=== PATIENT | female | born 1960 | race Caucasian/White ===

== ENCOUNTER 2016-10-31 14:45 | Emergency (ER) | payer OTHER ==
--- NOTE | ~2016-10-31 | CT71 ---
[facility] A Service [facility] RADIOLOGY TEXT RESULTS PATIENT: SHAWN FIELDS LOCATION: SED : 58 UNIT #: [id number] AGE: [address]: Dre Lawton MD SEX: F ORDER DR: [id number] [place] [id number] E MR#: [id number] Acc #: [id number] NAME: SHAWN FIELDS : 1960 SEX: F STUDY DATE/TIME: 10/31/2016 15:18 UNIT: SED ROOM: STUDY DESCRIPTION: CT Head Wo Contrast Attending Physician: Dre Lawton M.D. Ordering Physician: Dre Lawton M.D. MEDICAL IMAGING REPORT This report is preliminary unless electronic signature is present. EXAM CT head without IV contrast COMPARISON None INDICATIONS 56-year-old female with headache after falling and hitting the back of her head on the concrete today. Loss of consciousness for [address] imaging of the head was performed without IV contrast. This CT exam was performed with one or more of the following radiation dose reduction techniques: Automatic exposure control, adjustment of mA and/or kV according to patient size, and iterative reconstruction. Mastoid air cells, middle ears and visualized paranasal sinuses are well aerated. No significant subcutaneous hematoma. No acute fractures or suspicious osseous lesions. Normal cerebral and cerebellar volume. No abnormal extraaxial fluid collection or mass effect. No acute intracranial hemorrhage. No evidence of acute ischemia. IMPRESSION No acute intracranial abnormality. Dictated by... Delano Irwin M.D. THIS IS AN ELECTRONICALLY VERIFIED REPORT Delano Irwin M.D. at 11/04/2016 8:40 AM [facility] A Service [facility] RADIOLOGY TEXT RESULTS PATIENT: SHAWN FIELDS LOCATION: SED : 58 UNIT #: [id number] AGE: [address]: Dre Lawton MD SEX: F ORDER DR: TD: 10/31/2016 18:42 JOB #: [id number] MEDICAL IMAGING REPORT Page 1 of 1
--- NOTE | ~2016-10-31 | CT52 ---
[facility]. [facility] A Service of [facility] RADIOLOGY TEXT RESULTS PATIENT: SHAWN FIELDS LOCATION: SED : 58 UNIT #: [id number] AGE: [address]: Dre Lawton MD SEX: F ORDER DR: [id number] [address] [address] [id number] E MR#: [id number] Acc #: [id number] NAME: SHAWN FIELDS : 1960 SEX: F STUDY DATE/TIME: 10/31/2016 15:37 UNIT: SED ROOM: STUDY DESCRIPTION: CT Cervical Spine Wo Cont Attending Physician: Dre Lawton M.D. Ordering Physician: Dre Lawton M.D. MEDICAL IMAGING REPORT This report is preliminary unless electronic signature is present. EXAM CT cervical spine without IV contrast COMPARISON None INDICATIONS 56-year-old female with neck pain after falling and hitting her head on the concrete today. FINDINGS Axial CT imaging of the cervical spine was performed without IV contrast. Coronal sagittal reformats were constructed. This CT exam was performed with one or more of the following radiation dose reduction techniques: Automatic exposure control, adjustment of mA and/or kV according to patient size, and iterative reconstruction. Lack of IV contrast limits evaluation of adenopathy, vasculature and viscera. Bilateral minimal focal cervical carotid artery calcifications. Airway is widely patent. There is a trace right mastoid effusion. This is likely clinically insignificant. No evidence of associated acute fracture. Cervical spine is anatomically aligned aside from mild reversal of the normal curvature, perhaps positional or due to muscle spasm. No acute fracture. Mild uncinate hypertrophy of C5-C6 and C6-C7. There is mild associated bony neural foraminal narrowing on the left at C6-C7 IMPRESSION 1. No acute fracture or subluxation of the cervical spine. There is reversal of the normal curvature of the cervical spine, which may be positional or due to muscle spasm. 2. Mild uncinate hypertrophy and degenerative disc height loss at C5-C6 and C6-C7 with mild neural foraminal narrowing on the left at C6-C7 due to this uncinate hypertrophy. [facility] A Service of [facility] RADIOLOGY TEXT RESULTS PATIENT: SHAWN FIELDS LOCATION: SED : 58 UNIT #: [id number] AGE: [address]: Dre Lawton MD SEX: F ORDER DR: 3. Minimal cervical carotid artery calcifications. Dictated by... Delano Irwin M.D. THIS IS AN ELECTRONICALLY VERIFIED REPORT Delano Irwin M.D. at 11/04/2016 8:40 AM [facility]/dayron TD: 10/31/2016 18:49 JOB #: [id number] MEDICAL IMAGING REPORT Page 1 of 1
--- NOTE | ~2016-10-31 | CR71 ---
[facility]. [facility] A Service of [facility] RADIOLOGY TEXT RESULTS PATIENT: SHAWN FIELDS LOCATION: SED : 58 UNIT #: [id number] AGE: [address]: Dre Lawton MD SEX: F ORDER DR: [id number] [address] [address] [id number] E MR#: [id number] Acc #: [id number] NAME: SHAWN FIELDS : 1960 SEX: F STUDY DATE/TIME: 10/31/2016 15:45 UNIT: SED ROOM: STUDY DESCRIPTION: CR Chest Single View Attending Physician: Dre Lawton M.D. Ordering Physician: Dre Lawton M.D. MEDICAL IMAGING REPORT This report is preliminary unless electronic signature is present. EXAM Portable AP view of the chest COMPARISON None INDICATIONS 56-year-old female with upper back pain after falling and landing on her back today. FINDINGS No evidence of pneumothorax or definite pleural effusion. There is hazy attenuation over the left lung base favored to reflect prominent breast and cardiac shadows. Somewhat of a rounded density in the midline lower chest which could reflect a hiatal hernia. Adenopathy is thought less likely. Minimal right basilar opacity favoring atelectasis. IMPRESSION 1. Low lung volumes with right basilar opacities favoring atelectasis. 2. Hazy attenuation over the left lower chest is likely artifactual and related to overlapping breast and cardiac shadows but left basilar atelectasis, pneumonia or pleural effusion cannot entirely be excluded. 3. There is also suggestion of rounded density in the midline lower chest, possibly reflecting a hiatal hernia. Please note that adenopathy cannot be excluded in the midline lower chest. Consider dedicated PA and lateral views for further characterization with adequate inspiratory effort. 4. Not mentioned specifically in the body of the report, there are minimal sclerotic opacities in the proximal humerus at the level of the neck and head, favoring benign enchondroma. [facility]. [facility] A Service [facility] RADIOLOGY TEXT RESULTS PATIENT: SHAWN FIELDS LOCATION: SED : 58 UNIT #: [id number] AGE: [address]: Dre Lawton MD SEX: F ORDER DR: Dictated by... Delano Irwin M.D. THIS IS AN ELECTRONICALLY VERIFIED REPORT Delano Irwin M.D. at 11/04/2016 8:54 AM [facility]/psc TD: 10/31/2016 19:47 JOB #: [id number] MEDICAL IMAGING REPORT Page 1 of 1
--- NOTE | ~2016-10-31 | EKG ---
PATIENT: SHAWN FIELDS UNIT #: [id number] Ventricular Rate: 94 BPM Atrial Rate: 94 BPM P-R Interval: 138 ms QRS Duration: 74 ms Q-T Interval: 336 ms QTC Calculation(Bezet): 420 ms P Duson: 34 degrees Calculated R Duson: 4 degrees Calculated T Duson: 32 degrees Diagnosis Line: Normal sinus rhythm Diagnosis Line: Normal ECG Diagnosis Line: No previous ECGs available Diagnosis Line: Confirmed by RAKAN RASHID MD ([id number]) on 11/03/2016 Diagnosis Line: 9:35:13 AM INTERPRETING MD: GAY CLARK
[~2016-10-31 14:45] MED LIST: ALPRAZOLAM PO; BAYER ASPIRIN325 M1 PO; LISINOPRIL PO; SOMA PO
[2016-10-31 15:18] LABS: BASOPHIL% 0.6 % (0-2.5); EOSINOPHIL# 0.1 X10e3 (0-0.7); EOSINOPHIL% 1.3 % (0.0-7.0); HEMATOCRIT 38.4 % (35.0-45.0); HEMOGLOBIN 12.8 gm/dL (12.0-16.0); LYMPHOCYTE# 2.2 X10e3 (1.0-3.5); LYMPHOCYTE% 29.4 % (17.0-45.0); MEAN CELL VOLUME 94.2 FL (83-96); MEAN CORPUSCULAR HEMOGLOBIN 31.5 PG (28-34); MEAN CORPUSCULAR HGB CONC 33.4 g/dL (30-36); MEAN PLATELET VOLUME 7.9 FL (6.5-11.5); MONOCYTE# 0.5 X10e3 (0-1.0); MONOCYTE% 6.2 % (3.0-12.0); NEUTROPHIL# 4.8 X10e3 (1.5-7.1); NEUTROPHIL% 62.5 % (40-75); PLATELET COUNT 301 X10e3 (140-420); RED BLOOD COUNT 4.08 X10e (3.90-5.30); RED CELL DISTRIBUTION WIDTH 13.2 % (11.0-15.5); WHITE BLOOD COUNT 7.6 X10e3 (4.0-10.5)
[2016-10-31 15:19] LABS: DIFF IND NO
[2016-10-31 15:45] LABS: ALBUMIN SERUM 3.7 g/dL (3.5-5.0); ALKALINE PHOSPHATASE 70 U/L (32-92); ALT (SGPT) 7 U/L (10-40); AST (SGOT) 15 U/L (10-42); BILIRUBIN,TOTAL 0.4 mg/dL (0.2-2.0); BLOOD UREA NITROGEN 17 mg/dL (9-23); BUN/CREATININE RATIO 15.45; CALCIUM SERUM 8.3 mg/dL (8.4-10.2); CARBON DIOXIDE 28 mmol/L (22-31); CHLORIDE 111 mmol/L (100-111); CREATININE SERUM 1.1 mg/dL (0.6-1.4); GLOM FILT RATE Estimated 55.7 mL/min (>60); GLUCOSE FASTING 102 mg/dL (70-110); POTASSIUM 3.6 mmol/L (3.5-5.1); PROTEIN TOTAL SERUM 6.4 g/dL (6.0-8.3); SODIUM 141 mmol/L (135-145)
[2016-10-31 15:46] LABS: BILIRUBIN, DIRECT <0.1 mg/dL (0.0-0.2); BILIRUBIN,INDIRECT 0.3 mg/dL (0.0-0.9)
== END 2016-10-31 16:56 | disposition home or self-care (01) ==
LOC: SED 14:45
PROVIDERS: Emergency Medicine
DX: S13.4XXA Sprain of ligaments of cervical spine, initial encounter (principal); S00.03XA Contusion of scalp, initial encounter; W01.0XXA Fall on same level from slipping, tripping and stumbling without subsequent striking against object, initial encounter; Y92.009 Unspecified place in unspecified non-institutional (private) residence as the place of occurrence of the external cause
CPT/HCPCS: 36415; 70450; 71010; 72125; 80048; 80076; 82947; 85025; 93005; 96360; 99284